=== PATIENT | male | born 1965 | race Two or more races ===

== ENCOUNTER 2021-12-11 16:15 | Emergency (ER) | payer OTHER ==
[~2021-12-11] VITALS: Ht 170.2 cm; Wt 73.9 kg
[2021-12-11] MEDS ORDERED: COZAAR50 MG (16:40)
== END 2021-12-11 18:10 | disposition home or self-care (01) ==
LOC: ER 16:15 → EDSEX 16:20 → ER 16:20
DX: R10.32 Left lower quadrant pain (principal); R10.2 Pelvic and perineal pain; I10 Essential (primary) hypertension